=== PATIENT | male | born 1995 | race American Indian/Alaskan Native ===

== ENCOUNTER 2017-05-15 20:39 | Emergency (ER) | payer SELFPAY ==
[2017-05-15 22:09] VITALS: BP 152/100
[2017-05-15] MEDS ORDERED: TORADOL ONE (22:10)
[2017-05-15] MEDS ORDERED: TORADOL IM ONE (22:23)
[2017-05-15] MEDS ORDERED: XYLOCAINE 2%/ EPI 1:200,000 INFILTRATI ONE (22:31)
[2017-05-15] MEDS ORDERED: XYLOCAINE 1% 20 mL INFILTRATI ONE (22:33)
[2017-05-15] MEDS ORDERED: BOOSTRIX IM ONE (22:33)
--- NOTE | 2017-05-15 22:53 | Emergency Department Report ---
ED Male HPI - General Chief complaint: Urogenital-Male Stated complaint: PAIN IN GROIN Time Seen by Provider: 05/15/17 22:21 Source: patient Mode of arrival: Ambulatory Limitations: No Limitations - History of Present Illness Initial comments: Healthy 22-year-old male presents with mild left-sided scrotal swelling. He has not been sexually active in 2 months. He denies dysuria. He denies penile discharge. He did use clippers 2 months ago in order to trim the hair in his scrotal region. MD Complaint: testicle pain, testicle swelling -: Gradual, days(s) (3) Location: left testicle Radiation: none Severity: mild Quality: aching Consistency: constant Worsens with: palpation - Related Data Previous Rx's Medication Instructions Recorded Last Taken Type Cephalexin [Keflex] 500 mg PO QID 10 Days #40 capsule 05/15/17 Unknown Rx Sulfamethoxazole/Trimethoprim 1 each PO BID 10 Days #20 tablet 05/15/17 Unknown Rx [Bactrim Ds Tablet] Allergies Allergy/AdvReac Type Severity Reaction Status Date / Time acetaminophen [From Tylenol] Allergy Itching Verified 05/15/17 22:03 ibuprofen [From Motrin] Allergy Itching Verified 05/15/17 22:03 iodine Allergy Itching Verified 05/15/17 22:03 ED Review of Systems ROS: Stated complaint: PAIN IN GROIN Other details as noted in HPI Comment: All other systems reviewed and negative Constitutional: denies: chills, fever Respiratory: denies: cough Cardiovascular: denies: chest pain ED Past Medical Hx - Past Medical History Previous Medical History?: No - Surgical History Past Surgical History?: No - Social History Smoking Status: Current Every Day Smoker Substance Use Type: Marijuana - Medications Home Medications: Home Medications Medication Instructions Recorded Confirmed Last Taken Type Cephalexin [Keflex] 500 mg PO QID 10 Days #40 capsule 05/15/17 Unknown Rx Sulfamethoxazole/Trimethoprim 1 each PO BID 10 Days #20 tablet 05/15/17 Unknown Rx [Bactrim Ds Tablet] ED Physical Exam - General Limitations: No Limitations General appearance: alert, in no apparent distress - Head Head exam: Present: atraumatic, normocephalic - Eye Eye exam: Present: normal appearance - ENT ENT exam: Present: mucous membranes moist - Neck Neck exam: Present: normal inspection - Respiratory Respiratory exam: Present: normal lung sounds bilaterally. Absent: respiratory distress - Cardiovascular Cardiovascular Exam: Present: regular rate, normal rhythm. Absent: systolic murmur, diastolic murmur, rubs, gallop - GI/Abdominal GI/Abdominal exam: Present: soft, normal bowel sounds. Absent: distended, tenderness, guarding, rebound - Rectal Rectal exam: Present: deferred - exam: Present: scrotal swelling, other (3 cm abscess with fluctuance at the superior lateral left side scrotum). Absent: testicular tenderness, urethral discharge - Extremities Exam Extremities exam: Present: normal inspection - Back Exam Back exam: Present: normal inspection - Neurological Exam Neurological exam: Present: alert, oriented X3 - Psychiatric Psychiatric exam: Present: normal affect, normal mood - Skin Skin exam: Present: warm, dry, intact, normal color. Absent: rash ED Course Vital Signs 05/15/17 22:03 Temperature 99 F Pulse Rate 107 H Respiratory 18 Rate Blood Pressure 152/100 O2 Sat by Pulse 99 Oximetry - I & D Left Scrotum Type of Procedure: Simple Blade Size: 11 I & D Procedure: betadine prep Progress: 1% lidocaine with epinephrine 7 mL injected. 1 cm #11 horizontal incision. No drainage. Gauze dressing. ED Medical Decision Making - Medical Decision Making Scrotal abscess without significant drainage after incision and drainage. Patient provided oral keflex and Bactrim antibiotics. I provided a referral to urologist on-call. He will either follow up with urologist or return to the ER on Saturday. Critical care attestation.: If time is entered above; I have spent that time in minutes in the direct care of this critically ill patient, excluding procedure time. ED Disposition Clinical Impression: Scrotal abscess Disposition: DC-01 TO HOME OR SELFCARE Is pt being admited?: No Does the pt Need Aspirin: No Condition: Stable Instructions: Abscess (ED) Prescriptions: Cephalexin [Keflex] 500 mg PO QID 10 Days #40 capsule Sulfamethoxazole/Trimethoprim [Bactrim Ds Tablet] 1 each PO BID 10 Days #20 tablet Referrals: RUIZ CARSON MD [Staff Physician] - [facility] Forms: Work/School Release Form(ED)
== END 2017-05-16 00:09 | disposition home or self-care (01) ==
LOC: ED 20:39
DX: N49.2 Inflammatory disorders of scrotum (principal); F17.200 Nicotine dependence, unspecified, uncomplicated; F12.10 Cannabis abuse, uncomplicated; Z88.6 Allergy status to analgesic agent; Z88.8 Allergy status to other drugs, medicaments and biological substances
CPT/HCPCS: 55100; 90471; 90715; 96372; 99282; J1885